=== PATIENT | female | born 1970 | race Two or more races ===

== ENCOUNTER 2018-12-30 08:49 | Inpatient (IN) | payer MEDICAID ==
[2018-12-30] VITALS (8 sets, daily range): BP systolic 103–113; BP diastolic 59–72
[~2018-12-30] VITALS: Ht 154.9 cm; Wt 76.7 kg
--- NOTE | 2018-12-30 08:52 | NUR ---
[id number] FOR WEAK/DIZZY X FEW DAYS; LAST DIALYSIS YESTERDAY STATES HER "PLATELETS" LOW. PATIENT A/OX4, BREATHING EVEN AND UNLABORED, C/O BACK PAIN. PATIENT CONCERNED ABOUT HER BLOOD PRESSURE. PATIENT ATTACHED TO THE HOME STEREO EQUIPMENT INSTALLER.
--- NOTE | 2018-12-30 08:56 | NUR ---
DR. GALVAN AT BEDSIDE FOR EVAL
[2018-12-30] MEDS ORDERED: ONDANSETRON HCL/PF 4 MG/2 ML VIAL IVP ONE ×2 (09:00→10:30)
[2018-12-30] MEDS ORDERED: ONDANSETRON HCL/PF 4 MG/2 ML VIAL ONE ×2 (09:02→10:24)
--- NOTE | 2018-12-30 09:09 | NUR ---
GAS OPERATIONS ANALYST AT BEDSIDE
--- NOTE | 2018-12-30 09:14 | NUR ---
BLOOD DRAWN AND SENT TO LAB.
[2018-12-30 09:18] LABS: EOSINOPHILS % (AUTO) 0.5 % (0.0-6.0); MONOCYTES # (AUTO) 0.3 /CMM (0.1-1.30)
[2018-12-30 09:23] LABS: BASOPHILS % (AUTO) 0.3 % (0.0-2.0); HEMATOCRIT 25 % (33-45); HEMOGLOBIN 8.5 g/dL (11.5-14.8); LYMPHOCYTES # (AUTO) 1.3 /CMM (0.8-4.8); LYMPHOCYTES % (AUTO) 26.5 % (20.0-44.0); MEAN CORPUSCULAR HGB CONC 34 g/dl (31.0-36.0); MEAN CORPUSCULAR VOLUME 86 fL (82-100); MONOCYTES % (AUTO) 5.9 % (2.0-12.0); NEUTROPHILS # (AUTO) 3.3 /CMM (1.8-8.9); NEUTROPHILS % (AUTO) 66.8 % (43.0-81.0)
[2018-12-30 09:26] LABS: CALCIUM, SERUM 8.7 mg/dL (8.5-10.1); CARBON DIOXIDE 31 mmol/L (21-32); CHLORIDE 97 mmol/L (98-107); CREATININE 5.4 mg/dL (0.6-1.3); GLUCOSE 150 mg/dL (74-106); SODIUM SERUM 137 mmol/L (136-145); UREA NITROGEN, BLOOD 15 mg/dL (7-18)
[2018-12-30 09:30] LABS: PLATELET COUNT (AUTO) 5 /CMM (150-450)
[2018-12-30 09:42] LABS: ALANINE AMINOTRANSFERASE 55 U/L (12-78); ALBUMIN 2.7 g/dL (3.4-5.0); ALKALINE PHOSPHATASE 79 U/L (46-116); ASPARTATE AMINOTRANSFERASE 52 U/L (15-37); BILIRUBIN,DIRECT 0.8 mg/dL (0.0-0.2); BILIRUBIN,TOTAL 1.6 mg/dL (0.2-1.0); TOTAL PROTEIN, SERUM 7.1 g/dL (6.4-8.2)
--- NOTE | 2018-12-30 09:48 | NUR ---
PATIENT TAKEN TO CT.
--- NOTE | 2018-12-30 09:59 | NUR ---
CALLED FOR TELE BED AND TURNED IN PAPER TO ADMITTING
[2018-12-30] MEDS ORDERED: ACYC200C PO (10:04)
[2018-12-30] MEDS ORDERED: MORP10CA12 PO (10:04)
[2018-12-30] MEDS ORDERED: LACT10SO PO (10:04)
[2018-12-30] MEDS ORDERED: PANT40TA4 PO (10:04)
[2018-12-30] MEDS ORDERED: LORA10TA7 PO (10:04)
[2018-12-30] MEDS ORDERED: MORPHINE SULFATE INJ 4 MG/ML DISP.SYRIN ONE (10:24)
[2018-12-30 10:26] LABS: BAND % (MANUAL) 2 % (0.0-5.0); LYMPHOCYTES % (MANUAL) 32 % (16-48); METAMYELOCYTES % 1 % (0-0); MONOCYTES % (MANUAL) 10 % (0-11.0); NEUTROPHILS % (MANUAL) 53 (42-76)
[2018-12-30 10:27] LABS: MYELOCYTES % 2 % (0-0)
--- NOTE | 2018-12-30 10:28 | NUR ---
PANEL PAGED. AWAITING CALL BACK.
[2018-12-30] MEDS ORDERED: MORPHINE SULFATE INJ 2 MG/ML DISP.SYRIN IV ONE (10:30)
--- NOTE | 2018-12-30 10:46 | NUR ---
GOT [facility] BED 120-1
--- NOTE | 2018-12-30 11:04 | NUR ---
REPORT GIVEN TO LUIGI MCCLELLAN.
--- NOTE | 2018-12-30 14:00 | NUR ---
METAL PATTERN MAKER NOTE RECEIVED PATIENT FROM ER WITH DX THROMBOCYTOPENIA, MULTIPLE MYELOMA UNDER CARE DR DIAZ , PATIENT ALERT , ORIENTED X3 , PLACED ON TELE MONITOR SR HR 95 .HOSPITAL ORIENTATION DONE , VS TAKEN ,BELONGING CHECKED , BED IN LOWEST AND LOCKED POSITION , CALL LIGHT WITHIN REACH , CALLED TO DR DIAZ FOR BENADRYL AND TYLENOL PRIOR TO PLATELETS TRANSFUSUION PER PATIENT STATEMENT, SHE HAS EXPERIENCED ITCHINESS BEFORE. IV SITE IS PATENT, DRESSING IS CLEAN, SECURE AND INTACT. 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 FAMILY IS BEDSIDE. NOT IN DISTRESS. BED LOCKED, IN LOW POSITION AND SEMI-JOSUE'S POSITION. CALL LIGHT IN REACH. SAFETY PRECAUTIONS OBSERVED. WITH ORDERS OF PLATELET TRANSFUSION OF 2 UNITS OF PLATELETS.
[2018-12-30] MEDS ORDERED: diphenhydrAMINE HCL 50 MG/ML VIAL IV ONE (14:30)
[2018-12-30] MEDS ORDERED: ACETAMINOPHEN 325 MG TABLET PO PRN ×2 (14:30→15:30)
[2018-12-30] MEDS ORDERED: HYDROCODONE/APAP 5/325MG 1 EACH TABLET PO PRN (14:30)
--- NOTE | 2018-12-30 15:00 | NUR ---
HIDE SELECTOR NOTE: BENADRLY 25MG IV AND TYLENOL 650MG PO GIVEN PRIOR. 1ST UNIT OF PLATELET TRANSFUSION STARTED. VITAL SIGNS WNL. PATIENT COMFORTABLE AND RELAXED. WILL MONITOR PATIENT AT BEDSIDE FOR ANY REACTIONS.
[2018-12-30] MEDS ORDERED: Z GUARD REMEDY 2 OZ OINT TP PRN (15:30)
[2018-12-30] MEDS ORDERED: MAGNESIUM HYDROXIDE 30 ML UDC PO PRN (15:30)
[2018-12-30] MEDS ORDERED: MAG HYDROX/AL HYDROX/SIMETH 30 ML UDC PO PRN (15:30)
[2018-12-30] MEDS ORDERED: ZOLPIDEM TARTRATE 5 MG TABLET PO PRN (15:30)
[2018-12-30] MEDS ORDERED: ONDANSETRON HCL/PF 4 MG/2 ML VIAL IVP PRN (15:30)
[2018-12-30] MEDS ORDERED: MORPHINE SULFATE 10 MG PO PRN (15:30)
[2018-12-30] MEDS: LACTULOSE 10 G/15 ML UDC (PYXIS) PO SCH ×2 (16:28→17:30)
[2018-12-30] MEDS: ACYCLOVIR 200 MG CAPSULE PO SCH ×2 (16:28→17:30)
--- NOTE | 2018-12-30 16:30 | NUR ---
POCKET FLAP CREASING MACHINE OPERATOR NOTE PER DR LANCASTER AWARE THAT PLATELTS5 ORDERED TO TRANSFUSE 3 MORE , SO ALL TOGETHER
--- NOTE | 2018-12-30 17:41 | NUR ---
FINE GRADE OPERATOR NOTE DR ALEJANDRA AT BEDSIDE, SEEN PATIENT AWARE THAT PER DR HOLLEY TO TRANSFUSE 5 BAG OF PLATELETS, STATED OK TO TRANSFUSE ONLY 2 AT THIS TIME WILL CHECK LEVEL TOMORROW
--- NOTE | 2018-12-30 18:44 | NUR ---
CLEANER GREASER NOTE 1 ST UNIT PLATELETS TRANSFUSED, NO ADVERSE REACTION NOTED
[2018-12-30] MEDS: HYDROCODONE/APAP 5/325MG 1 EACH TABLET PO PRN (18:46)
--- NOTE | 2018-12-30 18:57 | NUR ---
JELLY FILTER TENDER CLOSING NOTE: PATIENT IN BED. ALERT, AWAKE AND ORIENTED X4. COOPERATIVE AND APPEARS TO BE IN NO ACUTE DISTRESS AND SOB. TOLERATING ROOM AIR WELL @ 97%. COMPLAINTS OF PAIN ON HER BACK AT 7/10 AND NORCO WAS GIVEN @1847. PATIENT TOLERATED 1 UNIT OF PLATELETS AND WILL ENDORSE TO ONCOMING SHIFT TO TRANSFUSE THE OTHER DOSE ORDERED LATER ON SHIFT. IV SITE ON RIGHT UPPER ARM INTACT, SITE CLEAN, DRY AND PATENT. BED IN LOW POSITION, LOCKED AND HIGH JOSUE'S PATIENT IS EATING DINNER AT THE MOMENT. CALL LIGHT IN REACH. STILL WITH COMPLAINTS OF DIZZINESS. WILL ENDORSE TO ONCOMING SHIFT FOR CONTINUITY OF CARE.
--- NOTE | 2018-12-30 20:00 | NUR ---
LEAD SOLUTIONS ARCHITECT INITIAL NOTE: PT AO X4. COOPERATIVE AND APPEARS TO BE IN NO ACUTE DISTRESS AND SOB. TOLERATING ROOM AIR WELL @ 98%. COMPLAINTS OF H/A 09/01 NORCO GIVEN BY AM RN. S/P 1 UNIT OF PLATELETS NO A/R POST . IV SITE ON RIGHT UPPER ARM INTACT, SITE CLEAN, DRY AND PATENT. BED IN LOW POSITION, LOCKED AND HIGH JOSUE'S POSITION. CALL LIGHT IN REACH. STILL WITH COMPLAINTS OF DIZZINESS. WILL ENDORSE TO ONCOMING SHIFT FOR CONTINUITY OF CARE.
[2018-12-30] MEDS: MORPHINE SULFATE IR 15 MG TABLET PO PRN (22:39)
[2018-12-31 00:14] VITALS: BP 110/60
[2018-12-31] MEDS ORDERED: diphenhydrAMINE HCL 50 MG CAPSULE PO PRN (04:30)
--- NOTE | 2018-12-31 06:22 | NUR ---
RN CLOSING NOTE ENDORSED PT S/P PLT TRANSFUSION, NO REACTION POST TRANSFUSION, HOWEVER, C/O BACK PAIN, MORPHINE PO GIVEN, PT ALLERGIC TO CODEINE, STARTED ITICHING 30 MIN'S CALLED JACQUELINE JIM, BENADRYL 50 MG PO X 1 GIVEN, EFFECTIVE. WILL ENDORSE FOR AM RN TO F/U WITH PMD.
[2018-12-31 06:54] LABS: BASOPHILS % (AUTO) 0.3 % (0.0-2.0); EOSINOPHILS % (AUTO) 0.7 % (0.0-6.0); HEMOGLOBIN 7.1 g/dL (11.5-14.8); LYMPHOCYTES # (AUTO) 1.3 /CMM (0.8-4.8); LYMPHOCYTES % (AUTO) 30.2 % (20.0-44.0); MEAN CORPUSCULAR HGB CONC 35 g/dl (31.0-36.0); MEAN CORPUSCULAR VOLUME 85 fL (82-100); MONOCYTES # (AUTO) 0.4 /CMM (0.1-1.30); MONOCYTES % (AUTO) 8.2 % (2.0-12.0); NEUTROPHILS # (AUTO) 2.6 /CMM (1.8-8.9); NEUTROPHILS % (AUTO) 60.6 % (43.0-81.0); RED BLOOD CELL COUNT(AUTO) 2.38 MIL/uL (4.0-5.2); WHITE BLOOD COUNT (AUTO) 4.3 K/uL (4.3-11.0)
[2018-12-31 07:23] LABS: CALCIUM, SERUM 8.6 mg/dL (8.5-10.1); CREATININE 6.7 mg/dL (0.6-1.3); MAGNESIUM 1.9 mg/dL (1.8-2.4); PHOSPHORUS 3.4 mg/dL (2.5-4.9); POTASSIUM 3.3 mmol/L (3.5-5.1)
--- NOTE | 2018-12-31 07:25 | NUR ---
MS/RN OPENING NOTES RECEIVED PATIENT IN BED SLEEPING COMFORTABLY. EASILY AROUSABLE. NO PAIN OR ACUTE DISTRESS AT THIS TIME. RESPIRATION EVEN AND UNLABORED. SKIN IS DRY WARM TO TOUCH. PATIENT IS ALERT AND ORIENTED X4. ABLE TO MAKE NEEDS KNOWN. IV ACCESS ON RIGHT AC INTACT AND PATENT. FLUSHING WELL. NO S/S OF INFECTION OR INFILTRATION. ALL NEEDS ANTICIPATED. CALL LIGHT WITHIN REACHED. BED LOCKED AND IN LOWEST POSITION. SAFETY MAINTAINED. PLAN OF CARE DISCUSSED. WILL CONTINUE TO MONITOR CLOSELY.
[2018-12-31 07:31] LABS: HEMATOCRIT 20 % (33-45); PLATELET COUNT (AUTO) 19 /CMM (150-450)
[2018-12-31 07:45] LABS: THYROID STIMULATING HORMONE 9.571 uIU/mL (0.358-3.74)
[2018-12-31] MEDS: PANTOPRAZOLE 40 MG TABLET.DR PO SCH (07:51)
[2018-12-31 08:00] VITALS: BP_SYST 126; BP_DIAS 72; BP_DIAS 76
[2018-12-31] MEDS: ACYCLOVIR 200 MG CAPSULE PO SCH ×2 (08:18→16:27)
[2018-12-31] MEDS: LACTULOSE 10 G/15 ML UDC (PYXIS) PO SCH ×3 (08:18→16:27)
[2018-12-31] MEDS: LORATADINE 10 MG TABLET PO SCH (08:18)
[2018-12-31 08:41] LABS: BAND % (MANUAL) 4 % (0.0-5.0); EOSINOPHILS % (MANUAL) 1 % (0-4); LYMPHOCYTES % (MANUAL) 38 % (16-48); MONOCYTES % (MANUAL) 12 % (0-11.0); NEUTROPHILS % (MANUAL) 45 (42-76)
--- NOTE | 2018-12-31 11:09 | NUR ---
MS/RN NOTES SPOKE TO DR. KERN IN THE UNIT AND INFORMED HIM ABOUT THE POTASSIUM LEVEL. NO NEW ORDERS AT THIS TIME. WILL CONTINUE TO MONITOR CLOSELY.
--- NOTE | 2018-12-31 11:09 | NUR ---
MS/RN NOTES SPOKE TO DR. KERN REGARDING PATIENT REQUESTING BENADRYL. HE ORDERED BENADRYL 25MG Q6H IV. ALL ORDERS NOTED AND CARRIED OUT. WILL CONTINUE TO MONITOR CLOSELY.
[2018-12-31] MEDS: diphenhydrAMINE HCL 50 MG/ML VIAL IV PRN ×2 (11:18→17:11)
[2018-12-31] MEDS: MORPHINE SULFATE IR 15 MG TABLET PO PRN (11:18)
[2018-12-31] MEDS ORDERED: EPOETIN ALFA (10,000 UNIT) 10,000 UNIT/ML VIAL IV ONE (15:00)
--- NOTE | 2018-12-31 15:19 | NUR ---
MS/RN NOTES SPOKE TO CM ON THE FLOOR REGARDING PATIENT, TRANSFER TO [facility] FOR HER CHEMOTHERAPY. ACCORDING TO CM SHE WILL TALK TO THE PATIENT FIRST. PATIENT CONTINUES TO REMAIN IN STABLE CONDITION. WILL CONTINUE TO MONITOR CLOSELY.
--- NOTE | 2018-12-31 15:35 | NUR ---
MS/RN NOTES PER CM SHE WOULD NOTIFY ME IF SHE GET A RESPONSE FROM [facility].
[2018-12-31 16:00] VITALS: BP_SYST 110; BP_SYST 121; BP_DIAS 64; BP_DIAS 82
[2018-12-31] MEDS: HYDROCODONE/APAP 5/325MG 1 EACH TABLET PO PRN (17:11)
--- NOTE | 2018-12-31 18:43 | NUR ---
MS/RN CLOSING NOTES PATIENT CONTINUES TO REMAIN IN STABLE CONDITION THROUGHOUT THE SHIFT. PROVIDED COMFORT AND SAFETY. IV ACCESS ON RIGHT AC INTACT AND PATENT. FLUSHING WELL. NO S/S OF INFECTION OR INFILTRATION. PATIENT ABLE TO TOLERATE MEALS AND MEDS WELL. ALL NEEDS ANTICIPATED. CALL LIGHT WITHIN REACHED. BED LOCKED AND IN LOWEST POSITION. SAFETY MAINTAINED. PLAN OF CARE DISCUSSED. WILL CONTINUE TO MONITOR CLOSELY. ENDORSED TO PM NURSE FOR MAINOR.
--- NOTE | 2018-12-31 19:25 | NUR ---
TELE/RN PATIENT IN BED, AWAKE, A/O X4, FAMILY AT BED SIDE, IN NO ACUTE DISTRESS, BREATHING EVEN AND UNLABORED. NO SOB NOTED, DENIES ANY PAIN OR DISCOMFORT AT THIS TIME. PATIENT ON TELE MONITORING WITH SINUS RHYTHM. IV SITE WITH NO S/S OF INFECTION, INFILTRATION. SAFETY MAINTAINED, BED AT THE LOWEST POSITION, CALL LIGHT WITHIN REACH. WILL CONTINUE TO MONITOR PER PLAN OF CARE.
[2018-12-31 20:00] VITALS: BP 106/59
[2019-01-01] VITALS: BP 106/59
[2019-01-01] MEDS: diphenhydrAMINE HCL 50 MG/ML VIAL IV PRN ×3 (00:08→20:15)
[2019-01-01] MEDS: HYDROCODONE/APAP 5/325MG 1 EACH TABLET PO PRN ×4 (01:33→21:48)
[2019-01-01 06:53] LABS: BASOPHILS % (AUTO) 0.2 % (0.0-2.0); EOSINOPHILS % (AUTO) 0.6 % (0.0-6.0); HEMATOCRIT 22 % (33-45); HEMOGLOBIN 7.4 g/dL (11.5-14.8); LYMPHOCYTES # (AUTO) 1.5 /CMM (0.8-4.8); LYMPHOCYTES % (AUTO) 27.5 % (20.0-44.0); MEAN CORPUSCULAR HGB CONC 34 g/dl (31.0-36.0); MEAN CORPUSCULAR VOLUME 86 fL (82-100); MONOCYTES # (AUTO) 0.4 /CMM (0.1-1.30); MONOCYTES % (AUTO) 7.7 % (2.0-12.0); NEUTROPHILS # (AUTO) 3.5 /CMM (1.8-8.9); RED BLOOD CELL COUNT(AUTO) 2.57 MIL/uL (4.0-5.2); WHITE BLOOD COUNT (AUTO) 5.4 K/uL (4.3-11.0)
--- NOTE | 2019-01-01 06:58 | NUR ---
TELE/RN PATIENT IN BED, SLEEPING COMFORTABLY AT THIS TIME, EASILY AROUSABLE, IN NO ACUTE DISTRESS, BREATHING EVEN AND UNLABORED. NO SOB NOTED, DENIES ANY PAIN OR DISCOMFORT AT THIS TIME. PATIENT ON TELE MONITORING WITH SINUS RHYTHM. IV SITE WITH NO S/S OF INFECTION, INFILTRATION. ALL DUE MEDS GIVEN ORDERED, TOLERATED WELL. SAFETY MAINTAINED, BED AT THE LOWEST POSITION, CALL LIGHT WITHIN REACH. WILL ENDORSE TO AM SHIFT NURSE FOR MAINOR.
[2019-01-01 07:07] LABS: CALCIUM, SERUM 8.8 mg/dL (8.5-10.1); CREATININE 5.5 mg/dL (0.6-1.3); POTASSIUM 3.9 mmol/L (3.5-5.1)
--- NOTE | 2019-01-01 07:10 | NUR ---
MS RN NOTES RECEIVED PATIENT AWAKE A/OX4 IN BED. NO SOB OR DISCOMFORT NOTED AT THIS TIME.T98.3 NO FEVER. ON ROOM AIR. RIGHT AC 20PATENT FLUSHED WELL. ACCORDING TO OLAP DEVELOPER NURSE PATIENT WILL BE TRANSFERRED TO [facility]. PT IS AMBULATORY . BED LOCKED IN THE LOWEST POSITION CALL LIGHT WITHIN REACH. WILL CONTINUE TO MONITOR.
[2019-01-01 07:26] LABS: PLATELET COUNT (AUTO) 14 /CMM (150-450)
--- NOTE | 2019-01-01 07:30 | NUR ---
MS RN NOTES RECEIVED A CRITICAL LAB VALUE OF PLT 14L FROM [facility] , LAB DEPARTMENT. PT HAS NO FEVER 98.3 F AND PLT IS GREATER THAN 10. NO PLT TRANSFUSION . WILL INFORM DR CONCHA Davison
[2019-01-01 08:00] VITALS: BP 129/71
[2019-01-01] MEDS: PANTOPRAZOLE 40 MG TABLET.DR PO SCH (08:25)
[2019-01-01] MEDS: LACTULOSE 10 G/15 ML UDC (PYXIS) PO SCH ×3 (08:26→16:59)
[2019-01-01] MEDS: ACYCLOVIR 200 MG CAPSULE PO SCH ×2 (08:26→16:59)
[2019-01-01] MEDS: LORATADINE 10 MG TABLET PO SCH (08:26)
[2019-01-01 11:17] LABS: BAND % (MANUAL) 1 % (0.0-5.0); EOSINOPHILS % (MANUAL) 1 % (0-4); LYMPHOCYTES % (MANUAL) 51 % (16-48); MONOCYTES % (MANUAL) 9 % (0-11.0); NEUTROPHILS % (MANUAL) 38 (42-76)
--- NOTE | 2019-01-01 15:58 | NUR ---
MS VY NOTE (CONSENT) CONSENT IS SIGNED BY PT ON 12/30/2018 AND IS VALID DURING HOSPITALIZATION.
[2019-01-01 16:00] VITALS: BP_SYST 114; BP_SYST 120; BP_DIAS 66; BP_DIAS 73
--- NOTE | 2019-01-01 19:15 | NUR ---
MS RN NOTES PATIENT IS A/OX4 ABLE TO WALK, AWAKE. NO SIGNS OF SOB AND DISCOMFORT AT THIS TIME. ALL NEEDS ATTENDED. HAVE NOT RECEIVED THE PRBC AND PLT (1 UNIT EACH ) YET. ENDORSED TO DYE RANGE OPERATOR NURSE FOR ADMINISTRATION. [employer] NOTIFIED NO BED WAS AVAILABLE AT [facility] FOR THE TRANSFER YET. BED AT THE LOWEST POSITION. CALL LIGHT WITHIN REACH. ENDORSED TO DYE RANGE OPERATOR NURSE FOR MAINOR.
[2019-01-01 20:00] VITALS: BP 125/65
--- NOTE | 2019-01-01 20:30 | NUR ---
MS RN: REASSESSED AFTER GIVEN BENADRYL WT GOOD EFFECT. PT EYES CLOSED, NO ITCHING NOTED. ABLE TO WAKE UP AND MAKE NEEDS KNOWN. NO ACUTE DISTRESS. NO C/O PAIN OR DISCOMFORT. FOLLOWED-UP WT BLOOD BANK FOR PRBC AND PLATELET TRANSFUSION BUT NOT READY FOR FERN PICKER AT THIS TIME.
[2019-01-02] VITALS (11 sets, daily range): BP systolic 107–129; BP diastolic 63–76
--- NOTE | 2019-01-02 00:30 | NUR ---
MS RN: BLOOD BANK CALLED AND SAID PRBC IS READY FOR PERSONAL BANKER. HOWEVER, PLATELET WAS NOT ORDERED ORDERING MD WAS NOT ABLE TO PLACE ORDER CORRECTLY. PLATELET REORDERED AND BLOOD BANK CONFIRMED AND SAID IT WILL BE AVAILABLE WITHIN 2-3HRS. WILL WAIT FOR PLATELET TO TRANSFUSE FIRST BEFORE PRBC. NO MAINOR ON PT. WILL CONTINUE TO MONITOR.
[2019-01-02] MEDS: diphenhydrAMINE HCL 50 MG/ML VIAL IV PRN ×2 (03:29→12:16)
--- NOTE | 2019-01-02 03:40 | NUR ---
MS RN: 1 UNIT PLATELET TRANSFUSION STARTED. UNABLE TO SCAN PRODUCT, CLS KAMALJIT MATA FROM BLOOD BANK MADE AWARE AND SAID OK TO GIVE. BENADRYL GIVEN PRIOR TO TRANSFUSION PT WAS C/O ITCHING. WILL CONTINUE TO MONITOR.
[2019-01-02] MEDS: HYDROCODONE/APAP 5/325MG 1 EACH TABLET PO PRN ×2 (04:46→12:15)
--- NOTE | 2019-01-02 05:15 | NUR ---
MS RN: 1 UNIT PLATELET TRANSFUSED WT NO ADVERSE REACTION. PRBC STARTED TRANSFUSION. WILL CONTINUE TO MONITOR.
--- NOTE | 2019-01-02 06:40 | NUR ---
MS RN: PRBC STILL TRANSFUSING, NO ADVERSE REACTION AT THIS TIME. NO S/S OF IV INFILTRATION. NO SIGNIFICANT MAINOR DURING THE SHIFT. REMAINED A/OX3, NO ACUTE DISTRESS NOTED. NORCO GIVEN ORDERED FOR GENERALIZED BODY PAIN WT GOOD EFFECT. BED LOCKED AND IN LOWEST POSITION, BED ALARM ON, SIDE RAILS UP X2, CALL LIGHT WITHIN REACH.
--- NOTE | 2019-01-02 07:15 | NUR ---
MS RN OPENING NOTES RECEIVED PATIENT A/OX4 WHILE GETTING RBC TRANSFUSION. NO SIGNS OF SOB AND DISCOMFORT AT THIS TIME. ON ROOM AIR, NO SIGN OF RESPIRATORY /CARDIAC DISTRESS NOTED. BED AT THE LOWEST POSITION AND LOCKED. SIDE RAILS UP X2, CALL LIGHT WITHIN REACH.WILL CONT' TO MONITOR.
--- NOTE | 2019-01-02 07:30 | NUR ---
BLOOD TRANSFUSION DONE. NO SOB, PAIN OR REACTION AT THIS TIME. CALLED LAB FOR CBC AND BMP IN 1 HOUR.
[2019-01-02] MEDS: ACYCLOVIR 200 MG CAPSULE PO SCH ×2 (08:16→17:05)
[2019-01-02] MEDS: PANTOPRAZOLE 40 MG TABLET.DR PO SCH (08:16)
[2019-01-02] MEDS: LORATADINE 10 MG TABLET PO SCH (08:16)
[2019-01-02] MEDS: LACTULOSE 10 G/15 ML UDC (PYXIS) PO SCH ×3 (08:17→17:05)
[2019-01-02 08:46] LABS: BASOPHILS # (AUTO) 0.3 /CMM (0.0-0.2); BASOPHILS % (AUTO) 3.2 % (0.0-2.0); EOSINOPHILS % (AUTO) 0.4 % (0.0-6.0); HEMATOCRIT 26 % (33-45); LYMPHOCYTES # (AUTO) 2.1 /CMM (0.8-4.8); LYMPHOCYTES % (AUTO) 25.8 % (20.0-44.0); MEAN CORPUSCULAR HGB CONC 34 g/dl (31.0-36.0); MEAN CORPUSCULAR VOLUME 86 fL (82-100); MONOCYTES # (AUTO) 0.5 /CMM (0.1-1.30); MONOCYTES % (AUTO) 6.4 % (2.0-12.0); NEUTROPHILS # (AUTO) 5.1 /CMM (1.8-8.9); NEUTROPHILS % (AUTO) 64.2 % (43.0-81.0); RED BLOOD CELL COUNT(AUTO) 3.06 MIL/uL (4.0-5.2)
[2019-01-02 09:08] LABS: PLATELET COUNT (AUTO) 26 /CMM (150-450)
--- NOTE | 2019-01-02 09:10 | NUR ---
RECEIVED CALL FROM LAB. PLATELETS 26. DR. KERN MADE AWARE. NO ORDER MADE.
[2019-01-02 09:17] LABS: CALCIUM, SERUM 9.6 mg/dL (8.5-10.1); POTASSIUM 3.5 mmol/L (3.5-5.1)
[2019-01-02 09:20] LABS: CREATININE 8.1 mg/dL (0.6-1.3)
--- NOTE | 2019-01-02 09:20 | NUR ---
RECEIVED CALL FROM LAB. CREATININE 8.1. DR. KERN MADE AWARE.
--- NOTE | 2019-01-02 09:45 | NUR ---
TALKED TO GREG COAL HANDLER REGARDING TRANSFERRING PATIENT TO THE [facility]. NO BED AVAILABLE YET.
[2019-01-02 10:01] LABS: BAND % (MANUAL) 3 % (0.0-5.0); EOSINOPHILS % (MANUAL) 1 % (0-4); LYMPHOCYTES % (MANUAL) 43 % (16-48); METAMYELOCYTES % 1 % (0-0); MONOCYTES % (MANUAL) 9 % (0-11.0); MYELOCYTES % 4 % (0-0); NEUTROPHILS % (MANUAL) 39 (42-76)
--- NOTE | 2019-01-02 14:56 | NUR ---
RN MS NOTE EPOGEN DUE AT 15:00 ON 01/02/19 WITH HD. PATIENT IS NOT GETTING HEMODIALYSIS TODAY. CHECKED WITH THE PHARMACY AND THEY SAID TO HOLD THE MEDICATION. PATIENT WILL HAVE HD TOMORROW Thursday01/03/19. RETURNED MEDICATION BACK IN THE [place] FOR TOMORROW.
[2019-01-02] MEDS ORDERED: EPOETIN ALFA (10,000 UNIT) 10,000 UNIT/ML VIAL SQ ONE (15:00)
--- NOTE | 2019-01-02 17:28 | NUR ---
PATIENT GOT DISCHARGED TO HOME. STABLE, TAKEN TO THE THE MAIN ENTRANCE BY NAWAF AGUIRRE ON WHEELCHAIR, ACCOMPANIED BY HER SON AND SISTER. ALL MEDS GIVEN, ALL NEEDS ATTENDED. DISCHARGE ORDER GIVEN.
== END 2019-01-02 17:26 | disposition home or self-care (01) | DRG 691 ==
LOC: ER 08:52 → TELE1 10:51 → MEDSG1 20:36
PROVIDERS: ADMIT Hospitalist; ATTEND Hospitalist
PROC: 30233R1 Transfusion of Nonautologous Platelets into Peripheral Vein, Percutaneous Approach (ICD-10-PCS; principal; 2018-12-30)
PROC: 5A1D70Z Performance of Urinary Filtration, Intermittent, Less than 6 Hours Per Day (ICD-10-PCS; 2018-12-31)
PROC: 30233P1 Transfusion of Nonautologous Frozen Red Cells into Peripheral Vein, Percutaneous Approach (ICD-10-PCS; 2019-01-02)
DX: C90.00 Multiple myeloma not having achieved remission (principal); D61.818 Other pancytopenia; I13.11 Hypertensive heart and chronic kidney disease without heart failure, with stage 5 chronic kidney disease, or end stage renal disease; E11.22 Type 2 diabetes mellitus with diabetic chronic kidney disease; D68.69 Other thrombophilia; E44.0 Moderate protein-calorie malnutrition; N18.6 End stage renal disease; E87.6 Hypokalemia; Z99.2 Dependence on renal dialysis; R74.0 Nonspecific elevation of levels of transaminase and lactic acid dehydrogenase [LDH]; T45.1X5A Adverse effect of antineoplastic and immunosuppressive drugs, initial encounter; Y92.009 Unspecified place in unspecified non-institutional (private) residence as the place of occurrence of the external cause; R53.1 Weakness; Z88.2 Allergy status to sulfonamides; E80.6 Other disorders of bilirubin metabolism; K76.0 Fatty (change of) liver, not elsewhere classified; Z68.31 Body mass index [BMI] 31.0-31.9, adult
CPT/HCPCS: 36415; 70450-TC; 71045-TC; 76700-TC; 80048-TC; 80061-TC; 80076-TC; 82728-TC; 82962-TC; 83540-TC; 83735-TC; 84100-TC; 84439-TC; 84443-TC; 84484-TC; 84703-TC; 85025-TC; 85730-TC; 86706; 86850-TC; 86921-TC; 87081-TC; 87340; 90935-TC; 97116-TC; 97530-TC; G0378; J0885; J1200; J2270; J2405; J7040; J7050; P9016-BL; P9034-BL; Q0163